=== PATIENT | male | born 1970 | race Caucasian/White ===

== ENCOUNTER 2017-05-06 19:52 | Emergency (ER) | payer SELFPAY ==
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
[2017-05-06 19:56] VITALS: BP 96/66; PULSE 73; TEMP 98.5; BMI 25.8
[2017-05-06 20:45] LABS: PH,URINE 5.5 (4.5-8); URINE APPEARANCE Clear; URINE BILIRUBIN Negative (NEGATIVE); URINE GLUCOSE (UA) Negative (NEGATIVE); URINE KETONE Negative (NEGATIVE); URINE LEUK ESTERASE Negative (NEGATIVE); URINE NITRITE Negative (NEGATIVE); URINE UROBILINOGEN 1.0 E.U/dl (0.2-1.0)
[2017-05-06 20:46] LABS: URINE BLOOD 2 (NEGATIVE); URINE COLOR y; URINE PROTEIN 1+ (NEGATIVE)
[2017-05-06 20:56] LABS: URINE BACTERIA FEW /hpf (NEGATIVE); URINE RBC 20-40 /hpf (0-3)
[2017-05-06] MEDS ORDERED: SODIUM CHLORIDE 1,000 ML IV STA (21:03)
[2017-05-06 21:04] LABS: BASOPHIL 3.9 % (0-2.0); EOSINOPHIL 2.7 % (0-4.5); MCH 27.5 pg (25.7-33.7); MCHC 32.7 g/dl (32.0-35.9); MEAN CELL VOLUME 84.3 fl (80-96); MEAN PLT VOLUME 9.2 fl (7.5-11.1); PLATELET COUNT 231 K/MM3 (134-434); RDW 12.7 % (11.9-15.9); WHITE BLOOD COUNT 10.1 K/mm3 (4.0-10.8)
[2017-05-06 21:05] LABS: INR 1.1 (0.82-1.09); PROTHROMBIN TIME (PATIENT) 12.3 SEC (10.2-13.0)
[2017-05-06 21:20] LABS: ALBUMIN 4.4 g/dl (3.5-5.0); ALK PHOS 68 U/L (32-92); ANION GAP 2 (8-16); BILIRUBIN,TOTAL 0.3 mg/dl (0.2-1.0); CALCIUM 8.7 mg/dl (8.4-10.2); CO2 27 mmol/L (22-28); CREATININE 1.3 mg/dl (0.6-1.3); GLUCOSE,RANDOM 124 mg/dl (74-106); SGOT/AST 22 U/L (10-42); SGPT/ALT 20 U/L (10-40); TOT PROT 7.4 g/dl (6.4-8.3)
[2017-05-07] MEDS ORDERED: ACETAMINOPHEN 325 MG TABLET (FP) PO ONE
[2017-05-07] MEDS ORDERED: ACETAMINOPHEN 325 MG TABLET (FP) ONE (00:03)
== END 2017-05-07 00:11 | disposition home or self-care (01) ==
LOC: FER 19:52
PROC: 3E0337Z Introduction of Electrolytic and Water Balance Substance into Peripheral Vein, Percutaneous Approach (ICD-10-PCS; principal; 2017-05-06)
DX: S37.002A Unspecified injury of left kidney, initial encounter (principal); V17.0XXA Pedal cycle driver injured in collision with fixed or stationary object in nontraffic accident, initial encounter; Y93.55 Activity, bike riding; Y92.9 Unspecified place or not applicable
CPT/HCPCS: 36415; 71101-TC; 74177-TC; 80053; 81003; 81015; 85025; 85610; 99282-25